=== PATIENT | male | born 1995 | race Two or more races ===

== ENCOUNTER 2018-12-16 15:47 | Emergency (ER) | payer OTHER ==
[2018-12-16 18:28] LABS: PLATELET COUNT 254 10^3/uL (150-400)
--- NOTE | 2018-12-16 18:30 | EDPHY ---
H & P Stated Complaint: chest pain x 4 days - Personal History Current Tetanus Diphtheria and Acellular Pertussis (TDAP): Yes - Medical/Surgical History Hx Asthma: No Hx Chronic Respiratory Disease: No Hx Diabetes: No Hx Cardiac Disease: No Hx Renal Disease: No Hx Cirrhosis: No Hx Alcoholism: No Hx HIV/AIDS: No Hx Splenectomy or Spleen Trauma: No Other PMH: throat pain, coma x 3 days - Social History Smoking Status: Never smoked Time Seen by Provider: 12/16/18 18:10 HPI/ROS: CHIEF COMPLAINT: Left-sided chest pain x4 days HISTORY OF PRESENT ILLNESS: 23-year-old male healthy, complaining of chest pain for the past 5 days as well as fatigue. He is originally from to [facility], has been here for approximately 1 month and notes that the cold weather has been agitating his throat and lungs. No cough. No back pain. No syncope no near syncope. No drug use. No immobilization. No hemoptysis. No calf pain. PRIMARY CARE PROVIDER: REVIEW OF SYSTEMS: 10 systems reviewed and negative with the exception of the elements mentioned in the history of present illness PAST MEDICAL & SURGICAL HISTORY: No pertinent medical or surgical history SOCIAL HISTORY:Nonsmoker. No drug use. No cocaine use. FAMILY HISTORY: no VT history. No family history of sudden unexplained . No family history of premature coronary artery disease. PHYSICAL EXAM (Prior to examination, patient consented to physical exam, hands were washed and my usual and customary physical exam procedures followed) 1) GENERAL: Well-developed, well-nourished, alert and oriented. Appears to be in no acute distress. 2) HEAD: Normocephalic, atraumatic 3) HEENT: Pupils equal, round, reactive to light bilaterally. Sclera anicteric. Nasopharynx, oropharynx, clear, no lesions. Moist Mucous membranes. No tonsillar enlargement or exudate 4) NECK: Full range of motion, no meningeal signs. 5) LUNGS: Clear auscultation bilaterally, no wheezes, no rhonchi, no retractions. 6) HEART: Regular rate and rhythm, no murmur, no heave, no gallop. 7) ABDOMEN: No guarding, no rebound, no focal tenderness, negative McBurney's, negative June's, negative Rovsing's, negative peritoneal sign, 8) MUSCULOSKELETAL: Moving all extremities, no focal areas of tenderness, no obvious trauma. No peripheral edema or discoloration. Negative Homans no palpable cord 9) BACK: No CVA tenderness, no midline vertebral tenderness, no fluctuance, no step-off, no obvious trauma, no visual or palpable abnormality. 10) SKIN: No rash, no petechiae. Anicteric 11) Psychiatric: Patient is oriented X 3, there is no agitation. DIFFERENTIAL DIAGNOSIS: In no particular order, including but not limited to myocardial ischemia, pulmonary embolus, chest wall pain, pleural inflammation and pulmonary infectious causes. (Ryanne Yeung) Constitutional: Initial Vital Signs Temperature (C) 36.6 C 12/16/18 15:55 Heart Rate 93 12/16/18 15:55 Respiratory Rate 16 12/16/18 15:55 Blood Pressure 122/86 H 12/16/18 15:55 O2 Sat (%) 96 12/16/18 15:55 O2 Delivery Mode Room Air Allergies/Adverse Reactions: No Known Allergies Allergy (Unverified 12/16/18 16:00) Home Medications: Medication Instructions Recorded NK [No Known Home Meds] 12/16/18 Medical Decision Making ED Course/Re-evaluation: 7:15 p.m.: Patient has a low risk heart score, has a negative D-dimer which I think adequately excludes pulmonary embolus in this patient whom I have a moderate pretest suspicion. I think the patient can be discharged. I recommend close follow-up. Care of patient under supervision of secondary supervising physician Dr Sigala with whom I discussed case. Patient feels comfortable being discharged. All questions and concerns addressed by myself. 7:22 pm: revaluation (Ryanne Yeung) The patient was evaluated and managed by the physician nurses assistant. I have reviewed this chart and I agree with the findings and plan of care as documented , as indicated by my signature. I am the secondary supervising physician. ( Petra Sigala) - Data Points Laboratory Results: Laboratory Results 12/16/18 18:05 12/16/18 18:05 Point of Care Test Results: Chemistry 12/16/18 18:14 POC Troponin I 0.00 ng/mL ng/mL (0.00-0.08) Departure - Departure Disposition: Home, Routine, Self-Care Clinical Impression: Chest pain Condition: Good Instructions: Chest Pain (ED) Additional Instructions: Seek medical attention if you develop new or worsening chest pain, if you develop new or worsening shortness of breath, or any other symptoms that concern you. Adult Pain & Fever Control: We recommend Acetaminophen (Tylenol) and Ibuprofen (Motrin,Advil) for pain and fever control. When fever is high or pain severe, both drugs can be used at the same time, but at different intervals. Please note the time differences. Your dose is: Acetaminophen 650mg every 4 to 6 hours [id number] every 6 hours with food OR . Note: do not take Acetaminophen with Hydrocodone (Vicodin, Lortab) or Oycodone (Percocet). These medications also contain Acetaminophen. No more than 3000mg of Acetaminophen should be taken in 24 hours (for an adult). Referrals: Thong Carmichael MD [Medical Doctor] - 2-3 days, call for appt. Stand Alone Forms: School Excuse
[2018-12-16 19:25] VITALS: BP 105/74
--- NOTE | 2018-12-16 23:32 | CPEKG ---
Test Reason : OPEN Blood Pressure : / mmHG Vent. Rate : 094 BPM Atrial Rate : 095 BPM P-R Int : 121 ms QRS Dur : 081 ms QT Int : 346 ms P-R-T Axes : 036 071 052 degrees QTc Int : [address] elev, probable normal early repol pattern Confirmed by Cruz Castrejon ([id number]) on 12/16/2018 11:31:31 PM Referred By: CRUZ CASTREJON Confirmed By:Cruz Castrejon
== END 2018-12-16 19:43 | disposition home or self-care (01) ==
DX: R07.9 Chest pain, unspecified (principal); R53.83 Other fatigue
CPT/HCPCS: 84484-ER